=== PATIENT | female | born 1960 | race Caucasian/White ===

== ENCOUNTER 2019-07-31 23:15 | Inpatient (IN) | payer MEDICARE, OTHER ==
[~2019-07-31] VITALS: Ht 160 cm; Wt 61.7 kg
[2019-07-31] MEDS ORDERED: VOLTAREN100 GM TOP (23:41)
[2019-07-31] MEDS ORDERED: RIZATRIPTAN5 MG PO (23:41)
[2019-07-31] MEDS ORDERED: FLUTICASONE PRO16 GM NAS (23:42)
[2019-07-31] MEDS ORDERED: CYCLOBENZAPRINE10 MG PO (23:45)
[2019-07-31] MEDS ORDERED: ALLEGRA-D 24 H1 EACH PO (23:45)
[2019-07-31] MEDS ORDERED: NIFEDIPINE ER60 MG PO (23:46)
[2019-07-31] MEDS ORDERED: VENLAFAXINE HCL75 M1 PO (23:46)
[2019-07-31] MEDS ORDERED: METFORMIN HCL500 MG PO (23:46)
[2019-07-31] MEDS ORDERED: BUPROPION HCL100 MG PO (23:47)
[2019-07-31] MEDS ORDERED: ATORVASTATIN CA10 MG PO (23:47)
[2019-07-31] MEDS ORDERED: TENORMIN50 MG PO (23:48)
[2019-07-31] MEDS ORDERED: CELEBREX200 MG PO (23:49)
[2019-07-31] MEDS ORDERED: PLAQUENIL200 MG PO (23:50)
[2019-07-31] MEDS ORDERED: METHOTREXATE2.5 MG PO (23:50)
[2019-07-31] MEDS ORDERED: FOLIC ACID1 MG PO (23:50)
[2019-07-31] MEDS ORDERED: PROAIR RESPICL90 MCG INH (23:52)
[2019-08-01] MEDS ORDERED: ATENOLOL50 MG PO (02:57)
[2019-08-02] MEDS ORDERED: LEFLUNOMIDE10 MG PO (11:15)
[2019-08-02] MEDS ORDERED: AMLODIPINE BES2.5 MG PO (11:19)
[2019-08-02] MEDS ORDERED: MONTELUKAST SOD10 MG PO (11:19)
[2019-08-02] MEDS ORDERED: GLUCOSAMINE1000 MG PO (13:14)
[2019-08-02] MEDS ORDERED: CALCIUM + VITA1 EACH PO (13:14)
[2019-08-02] MEDS ORDERED: CENTRUM WOMEN1 EACH PO (13:15)
[2019-08-02] MEDS ORDERED: KRILL OIL500 MG PO (13:16)
[2019-08-03] MEDS ORDERED: DOXYCYCLINE HY100 MG PO (10:25)
[2019-08-03] MEDS ORDERED: CEFPODOXIME PR200 MG PO (10:26)
[2019-08-03] MEDS ORDERED: NIFEDIPINE ER60 MG PO (10:27)
[2019-08-03] MEDS ORDERED: NICORETTE4 M2 BUCCAL (10:27)
== END 2019-08-03 11:50 | disposition home or self-care (01) | DRG 190 ==
LOC: ED 23:15 → MS 23:16
PROVIDERS: ADMIT Internal Medicine
DX: J44.0 Chronic obstructive pulmonary disease with (acute) lower respiratory infection (principal); J13 Pneumonia due to Streptococcus pneumoniae; E78.5 Hyperlipidemia, unspecified; E11.9 Type 2 diabetes mellitus without complications; I10 Essential (primary) hypertension; M06.9 Rheumatoid arthritis, unspecified; F17.200 Nicotine dependence, unspecified, uncomplicated; G89.4 Chronic pain syndrome; F39 Unspecified mood [affective] disorder; G43.909 Migraine, unspecified, not intractable, without status migrainosus; J32.9 Chronic sinusitis, unspecified; Z79.84 Long term (current) use of oral hypoglycemic drugs; Z79.1 Long term (current) use of non-steroidal anti-inflammatories (NSAID); Z79.51 Long term (current) use of inhaled steroids; Z79.899 Other long term (current) drug therapy
CPT/HCPCS: 71046; 80048; 80053; 83605; 85025; 87040; 87070; 87205; 87449; 87502; 87899; 94640; 94762; 99285-25; J0696; J1650; J7121; J7512; U0002